=== PATIENT | male | born 1985 | race Caucasian/White ===

== ENCOUNTER 2020-02-02 12:46 | Emergency (ER) | payer SELFPAY ==
[2020-02-02 12:52] VITALS: BP 122/71; PULSE 91; RESP 16; TEMP 37; O2SAT 98; BMI 19.7
[2020-02-02 13:24] LABS: RBC Urine None Seen (0-5/HPF)
[2020-02-02 13:28] LABS: Amorphous Sediment Urine 1+; Bacteria Urine Occasional (0-1); Culture Indicated Urine Specimen Cultured; Squamous Epithelial Cell Urine 0-1 /HPF (0-5/HPF); WBC Urine 1-5/HPF (0-5/HPF)
--- NOTE | 2020-02-02 14:40 | ED_ITS ---
HPI - Male Genitourinary General Chief complaint: Urogenital-Male Stated complaint: left sided lbpain/testicular pain x1 week Time Seen by Provider: 02/02/20 14:40 Source: patient Mode of arrival: Ambulatory Limitations: no limitations History of Present Illness HPI Narrative: 35-year-old gentleman presents with 3-4 days of increasing left flank left groin left testicular pain. He notes no fevers. He has had a new sexual partner recently and does note some minor urethral discharge 1st thing in the morning. Describes no fevers but the pain achiness is progressing to the point where he is not able to ignore it any more. 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 As the pain began radiating down more into his scrotum he felt that further evaluation was appropriate. Related Data Previous Rx's Medication Instructions Recorded doxycycline hyclate 100 mg PO BID #20 cap 02/02/20 Allergies Allergy/AdvReac Type Severity Reaction Status Date / Time cefaclor [From [facility]] Allergy Anaphylaxis Verified 02/02/20 12:57 Review of Systems Review of Systems Narrative: Pertinent positive and negative findings as per HPI Remainder of review of systems is otherwise unremarkable for Constitutional: Fevers, chills, weakness ENT: No sore throat, neck pain, ear pain CV: Chest pain, palpitations, dyspnea on exertion Respiratory: Cough, wheeze, dyspnea MS: Muscle weakness, numbness, joint swelling or warmth Skin: Rashes, nonhealing lesions Neuro: Syncope, dizziness, tingling Patient History Medical History Epididymitis (Acute) Social History Smoking Status: Current every day smoker Smoking Status: Current every day smoker tobacco type: cigarettes alcohol intake frequency: holidays/special occasions only Substance Use Type: marijuana Exam Narrative Exam Narrative: General: Healthy appearing, in no acute distress. Able to give a complete and coherent history. Well-nourished well-developed HEENT: Moist mucous membranes, normal sclera with reactive pupils, Respiratory: Lungs are clear to auscultation, no wheezing no rales no rhonchi. Full and symmetrical air movement Cardiac: Regular rate and rhythm no murmurs no bruits Abdomen: Soft nontender good bowel tones,no rebound or guarding, mild left- sided flank pain, Skin: Warm and dry, no rashes Neurologic: Grossly neurologically intact with no obvious asymmetries or abnormalities Extremities: No trauma, well perfused Psych: Cooperative, appropriate insight and affect Genitals: Normal circumcised male mild tenderness along the epididymis left testicle without significant testicular enlargement. Minor inguinal adenopathy left side. No lesions or discharge noted from penis Initial Vital Signs Initial Vital Signs: Vital Signs Temperature 98.6 F 02/02/20 12:52 Pulse Rate 91 H 02/02/20 12:52 Respiratory Rate 16 02/02/20 12:52 Blood Pressure 122/71 02/02/20 12:52 Pulse Oximetry 98 02/02/20 12:52 Course Orders Ordered: ED Orders 02/02/20 13:10 Urine Culture Stat Urine Microscopic Stat 02/02/20 14:49 US scrotum Stat 02/02/20 17:35 Chlamydia Gonorrhea PCR -URINE Stat Discontinued Medications Azithromycin (Zithromax) 1,000 mg PO NOW ONE Stop: 02/02/20 17:28 Doxycycline Hyclate (Vibramycin) 100 mg PO NOW ONE Stop: 02/02/20 17:35 Ondansetron HCl (Zofran Odt) 4 mg SL NOW ONE Stop: 02/02/20 17:28 Vital Signs Vital signs: Vital Signs - 8 hr 02/02/20 12:52 02/02/20 16:51 Temperature 98.6 F Pulse Rate 91 H 76 Respiratory Rate 16 14 Blood Pressure 122/71 130/82 Pulse Oximetry 98 100 MDM - Male Genitourinary Medical Records Attestation: I reviewed the patient's medical records. Lab Data Attestation: I reviewed the patient's lab results. Labs: Lab Results 02/02/20 Range/Units 13:10 Urine RBC None seen (0-5/HPF) Urine WBC 1-5/hpf (0-5/HPF) Ur Squamous Epith Cells 0-1 /hpf (0-5/HPF) Amorphous Sediment 1+ Urine Bacteria Occasional (0-1) (None) Ur Culture Indicated? Specimen cultured Urine Dip Bedside Urine Glucose 100 mg/dl Bedside Urine Bilirubin - Negative Bedside Urine Ketone +/- 5 Urine Specific [place]landon 1.015 Bedside Urine Occult Blood - Negative Bedside Urine pH 7.5 Bedside Urine Protein +/- 15 Bedside Urine Urobilinogen 1+ 2mg Bedside Urine Nitrite - Negative Bedside Urine Leukocytes +/- 15 Esterase Imaging Data scrotum us: Radiologist's Impression: FINDINGS: Right: Testicle is normal in size at 4.1 x 3.2 x 2 x 1 cm, and homogenous in echotexture. Epididymis is normal in overall size. There is a 3 mm right epididymal head cyst seen. No hydrocele or varicoceles. Overlying scrotal skin is normal in thickness. Left: Testicle is normal in size at 3.7 x 2.6 x 2.1 cm, and homogeneous in echotexture. Epididymis is normal in overall size. Within the left epididymal head, there is a hypoechoic area with increased vascularity seen. Elsewhere, to simple cysts are seen within the epididymal head that measure 3 mm and 4 mm, respectively. There is a trace left-sided hydrocele present. No varicoceles. Overlying scrotal skin is normal in thickness. Doppler: Color and pulse Doppler demonstrate normal and symmetric arterial flow in both testicles. IMPRESSION: No significant testicular abnormality is seen. Normal appearing, symmetric vascular flow is confirmed to the testicles. Potential left epididymitis, with a 9 mm vascular focus seen within the left epididymis. There is a trace left-sided hydrocele. Incidental note is made tiny bilateral epididymal head cysts. Dictated by: Alfred Roman M.D. on 02/02/2020 at 15:03 MDM Narrative Medical decision making narrative: 35-year-old gentleman presents with testicular/epididymis pain and possible urethral discharge with new recent sexual partners. He is allergic with an anaphylactic reaction to Ceclor. Urine has been tested via PCR for gonorrhea and chlamydia. Will empirically treat him with azithromycin 1 g here in the emergency department as an alternative to 250 mg of IM ceftriaxone and discharge him home with 10 additional days of doxycycline 100 mg b.i.d. for epididymitis with possible chlamydia complication. Findings are reviewed with him. Questions are answered. He is safe for home discharge Discharge Plan Departure Patient Disposition: Home Clinical Impression: Epididymitis Instructions: Facts About Sexually Transmitted Infections, DI for Epididymitis Activity Restrictions/Additional Instructions: Thank you for coming in in for your patience today. Your ultrasound suggests that you have epididymitis. Using 400 mg of ibuprofen (2 oain-moi-yylfmtm pills) and 1 Tylenol every 6 hours can be very helpful in controlling pain. Epididymitis can be inflammatory but it can also be related to bacterial infections. Gonorrhea and chlamydia can cause epididymitis. I have tested your urine for both of these but will not have results back for a couple of days. In the meantime, I have treated you with 1 g of azithromycin in the emergency department (an alternative to a shot of ceftriaxone as you are allergic to Ceclor) and given you 10 days of doxycycline, to be taken twice a day. Please make sure you complete the entire prescription It would be appropriate to notify your partners of your possible infection and suggests that they be tested and treated as appropriate. If you feel that you are getting worse, please return to the emergency department I hope you feel better Prescriptions: New doxycycline hyclate 100 mg capsule 100 mg PO BID Qty: 20 RF: 0
--- NOTE | 2020-02-02 14:49 | DI.US.S_ITS ---
PROCEDURE: US SCROTUM INDICATIONS: LEFT TESTICULAR PAIN TECHNIQUE: Real-time scanning was performed of the scrotum and testicles, with image documentation. Color and pulse Doppler interrogation was performed of both testicles. COMPARISON: None. FINDINGS: Right: Testicle is normal in size at 4.1 x 3.2 x 2 x 1 cm, and homogenous in echotexture. Epididymis is normal in overall size. There is a 3 mm right epididymal head cyst seen. No hydrocele or varicoceles. Overlying scrotal skin is normal in thickness. Left: Testicle is normal in size at 3.7 x 2.6 x 2.1 cm, and homogeneous in echotexture. Epididymis is normal in overall size. Within the left epididymal head, there is a hypoechoic area with increased vascularity seen. Elsewhere, to simple cysts are seen within the epididymal head that measure 3 mm and 4 mm, respectively. There is a trace left-sided hydrocele present. No varicoceles. Overlying scrotal skin is normal in thickness. Doppler: Color and pulse Doppler demonstrate normal and symmetric arterial flow in both testicles. IMPRESSION: No significant testicular abnormality is seen. Normal appearing, symmetric vascular flow is confirmed to the testicles. Potential left epididymitis, with a 9 mm vascular focus seen within the left epididymis. There is a trace left-sided hydrocele. Incidental note is made tiny bilateral epididymal head cysts. Dictated by: Alfred Roman M.D. on 02/02/2020 at 15:03 Approved by: Alfred Roman M.D. on 02/02/2020 at 15:06
[2020-02-02 16:51] VITALS: BP 130/82; PULSE 76; RESP 14; O2SAT 100
[2020-02-02] MEDS: ONDANSETRON 4 MG ODT SL (17:50)
[2020-02-02] MEDS: AZITHROMYCIN 250 MG TABLET 1000 MG PO (17:50)
[2020-02-02] MEDS: DOXYCYCLINE HYCLATE 100 MG TABLET PO (17:51)
[2020-02-02 18:02] VITALS: BP 134/64; PULSE 74; RESP 16; O2SAT 100
[2020-02-02 20:02] LABS: Urine N gonorrhoeae NOT DETECTED
[2020-02-02 20:03] LABS: Urine Chlamydia NOT DETECTED
== END 2020-02-02 18:15 | disposition home or self-care (01) ==
PROVIDERS: Emergency Provider Emergency Medicine
DX: N45.1 Epididymitis (principal); Z11.3 Encounter for screening for infections with a predominantly sexual mode of transmission
CPT/HCPCS: 76870; 81003; 81015; 87086; 87491; 87591; 99283; 99284

== ENCOUNTER 2021-01-25 18:10 | Emergency (ER) | payer OTHER, SELFPAY ==
--- NOTE | 2021-01-25 | DI.RAD.S_ITS ---
PROCEDURE: XR CHEST 2V INDICATIONS: COUGH TECHNIQUE: 2 views of the chest were acquired. COMPARISON: None. FINDINGS: Surgical changes and devices: None. Lungs and pleura: Lungs are clear. No pleural effusions or pneumothorax. Incidental note of a azygos lobe is noted. Mediastinum: Mediastinal contours are normal. Heart size is normal. Bones and chest wall: No suspicious bony abnormalities. Soft tissues appear unremarkable. IMPRESSION: No acute cardiopulmonary abnormality. Dictated by: Christian Alfaro M.D. on 01/25/2021 at 20:21 Approved by: Christian Alfaro M.D. on 01/25/2021 at 20:22
[2021-01-25 18:31] VITALS: BP 122/71; PULSE 73; RESP 17; TEMP 37.2; O2SAT 99; BMI 21.2
[2021-01-25 18:47] LABS: COVID19 -Nasal RAPID Negative (Negative)
--- NOTE | 2021-01-25 20:33 | ED.NAVMDI ---
HPI - Nausea/Vomiting/Diarrhea General Chief complaint: Upper Respiratory Symptoms Stated complaint: Headache,Pinch Behind Ear, N/V/D, Abd Pain Time Seen by Provider: 01/25/21 20:27 Source: patient Mode of arrival: Ambulatory History of Present Illness HPI Narrative: Patient awoke this morning with abdominal discomfort with watery diarrhea through the day. Also had few episodes of vomiting. Nonbloody. His had a dry cough going on as well. He started stop smoking. Has had body aches and chills. Unknown any contacts with COVID. He is concerned he may have COVID. Able to drink fluids and keep it down. No dyspnea. Related Data Previous Rx's Medication Instructions Recorded ibuprofen 600 mg tablet 600 mg PO Q6H PRN #24 tab 01/25/21 ondansetron 4 mg disintegrating 4 mg PO Q8H PRN #10 tab 01/25/21 tablet Allergies Allergy/AdvReac Type Severity Reaction Status Date / Time cefaclor [From [facility]] Allergy Anaphylaxis Verified 01/25/21 18:33 Review of Systems Review of Systems Narrative: GENERAL: Complains chills, fatigue, malaise, fever, denies sweats. HEENT: Denies sinus pain, ear pain, sore throat RESPIRATORY: Denies dyspnea, complaint cough CARDIOVASCULAR: Denies chest pain, palpitations GASTROINTESTINAL: Complains of watery diarrhea and nausea, vomiting, denied abdominal pain : Denies dysuria, frequency, hematuria MUSCULOSKELETAL: Complainsmuscle or bony pain SKIN: Denies rash, skin lesions NEUROLOGIC: Denies weakness, numbness ROS Unobtainable: All systems reviewed & are unremarkable except as noted in HPI and below Patient History Medical History Epididymitis Social History Smoking Status: Current every day smoker Smoking Status: Current every day smoker tobacco type: cigarettes alcohol intake frequency: holidays/special occasions only Substance Use Type: marijuana Exam Narrative Exam Narrative: GENERAL: in no distress, not toxic not dyspneic HEAD: Normocephalic. EYES: Pupils equal round No scleral icterus. No injection no discharge ENT: Mucous membranes moist. NECK: Trachea midline. CARDIOVASCULAR: Regular rate and rhythm without murmurs RESPIRATORY: Clear to auscultation. Breath sounds equal bilaterally. No wheezes, rales, or rhonchi. GASTROINTESTINAL: Abdomen soft, non-tender, no peritoneal signs, abdomen flat, bowel sounds present EXTREMITIES: No gross deformities. BACK: No flank tenderness. NEURO: AOx4. SKIN: Warm and dry PSYCH: Not anxious, is cooperative Initial Vital Signs Initial Vital Signs: Vital Signs Temperature 98.9 F 01/25/21 18:31 Pulse Rate 73 01/25/21 18:31 Respiratory Rate 17 01/25/21 18:31 Blood Pressure 122/71 01/25/21 18:31 Pulse Oximetry 99 01/25/21 18:31 Course Course Course Narrative: No new issues during course of stay. Patient started feeling better while here. Orders Ordered: Discontinued Medications Ibuprofen (Ibuprofen 400 Mg Tablet) 400 mg PO NOW ONE Stop: 01/25/21 20:34 Last Admin: 01/25/21 20:47 Dose: 400 mg Documented by: SEBAS Ondansetron HCl (Ondansetron 4 Mg Odt) 4 mg SL NOW ONE Stop: 01/25/21 20:34 Last Admin: 01/25/21 20:47 Dose: 4 mg Documented by: SEBAS Reevaluation(s) Reevaluation #1: Reviewed results with patient. Patient does not want any IV or blood work. Time: 20:39 Vital Signs Vital signs: Vital Signs - 8 hr 01/25/21 18:31 Temperature 98.9 F Pulse Rate 73 Respiratory Rate 17 Blood Pressure 122/71 Pulse Oximetry 99 MDM - Nausea/Vomiting/Diarrhea Differential Diagnosis Differential diagnosis: Likely gastroenteritis, dehydration and other (COVID/viral illness) Lab Data Labs: Lab Results 01/25/21 Range/Units 18:30 SARS-CoV-2 (PCR) Negative (Negative) Imaging Data Chest x-ray: Radiologist's Impression: [address] [address] XRay Report Signed Patient: Armani Lee MR#: [id number] : 1985 Acct:[id number] Age/Sex: 36 / M Date of Service: 01/25/21 Loc: ED Accession Number: [id number] ?? Procedure: XR chest 2V Ordering Provider: *Temp,ED*? PROCEDURE:? XR CHEST 2V ? INDICATIONS:? COUGH ? TECHNIQUE:? 2 views of the chest were acquired.? ? COMPARISON:? None. ? FINDINGS:? ? Surgical changes and devices:? None.? ? Lungs and pleura:? Lungs are clear.? No pleural effusions or pneumothorax.? Incidental note of a azygos lobe is noted. ? Mediastinum:? Mediastinal contours are normal.? Heart size is normal.? ? Bones and chest wall:? No suspicious bony abnormalities.? Soft tissues appear unremarkable.? ? IMPRESSION:? No acute cardiopulmonary abnormality. ? ? Dictated by: Christian Alfaro M.D. on 01/25/2021 at 20:21 ? ? Approved by: Christian Alfaro M.D. on 01/25/2021 at 20:22 ? MDM Narrative Medical decision making narrative: Appropriate and for discharge home. Vital signs exam and imaging and labs reassuring. Return precautions reviewed patient. He needs a work note to indicate he has not COVID positive. Discharge Plan Departure Patient Disposition: Home Clinical Impression: Viral infection Instructions: DI for Viral Gastroenteritis -- Adult Activity Restrictions/Additional Instructions: You had tested negative for COVID infection. Likely other viral illness causing your symptoms. Call provided referral line detained family doctor tomorrow for recheck next week. Keep well hydrated. Return if worsening questions or concerns. Prescriptions: New ibuprofen 600 mg tablet 600 mg PO Q6H PRN (Reason: fever or pain) Qty: 24 RF: 0 ondansetron 4 mg tablet,disintegrating 4 mg PO Q8H PRN (Reason: nausea and vomiting) Qty: 10 RF: 0 Referrals: [facility] [Outside] Stand Alone Forms: Work Release Note
[2021-01-25] MEDS: ONDANSETRON 4 MG ODT SL (20:47)
[2021-01-25] MEDS: IBUPROFEN 400 MG TABLET PO (20:47)
== END 2021-01-25 20:54 | disposition home or self-care (01) ==
PROVIDERS: Emergency Medicine; Emergency Provider Emergency Medicine
DX: B34.9 Viral infection, unspecified (principal); R19.7 Diarrhea, unspecified; R05 Cough; Z20.822 Contact with and (suspected) exposure to COVID-19
CPT/HCPCS: 71046; 87635; 99283; C9803

== ENCOUNTER 2023-05-08 14:22 | Emergency (ER) | payer SELFPAY ==
[2023-05-08 14:25] VITALS: BP 148/64; PULSE 91; RESP 14; TEMP 36.7; O2SAT 100; BMI 20.9
--- NOTE | 2023-05-08 15:13 | CM.SWNOTE ---
ED FACTORY MACHINE COMPUTER OPERATOR Note FACTORY MACHINE COMPUTER OPERATOR receives consult from machine shop repair technician due to patient's concern for food insecurity. FACTORY MACHINE COMPUTER OPERATOR enters room to meet with patient, patient endorses that his food stamps ran out but he contacted [facility] and signed up for food stamps. Patient and family deny any needs or assistance from FACTORY MACHINE COMPUTER OPERATOR. Patient endorses that he knows of food [place] he can go to as well. Plan: patient to d/c to home upon medical clearance after ED provider evaluation. Ena Byrd, MASTER BARBER
--- NOTE | 2023-05-08 15:29 | DI.RAD.S_ITS ---
PROCEDURE: XR LUMBAR SPINE 2-3V INDICATIONS: low back pain with tenderness over low lumbar, no trauma TECHNIQUE: 3 views of the lumbar spine were acquired. COMPARISON: None. FINDINGS: Bones: 5 [id number] vertebrae are present. There is normal bony alignment. No vertebral body compression fractures. No suspicious bony lesions. Soft tissues: Overlying bowel gas pattern is normal. No suspicious soft tissue calcifications. IMPRESSION: No acute bony abnormality. Dictated by: Christian Alfaro M.D. on 05/08/2023 at 16:39 Approved by: Christian Alfaro M.D. on 05/08/2023 at 16:40
--- NOTE | 2023-05-08 15:44 | ED.BACK ---
HPI - Back Pain/Injury <Windy Rojas PA-C - Last Filed: 05/08/23 17:48> General Chief Complaint: Back Pain/Injury Stated Complaint: lower back pain Time Seen by Provider: 05/08/23 14:41 Source: patient History of Present Illness HPI Narrative: Patient is a 38-year-old male who presents with low back pain. 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 A couple days ago his low back was bothering him, he cleaned out the dog run and the next morning was having more significant pain. Since then, he has started having shooting pain in his right leg. He denies any loss of bowel or bladder control, saddle anesthesia or inability to walk. He took ibuprofen x1. He has never had surgery in his back. Related Data Previous Rx's Medication Instructions Recorded ibuprofen 600 mg tablet 600 mg PO Q6H PRN fever or pain 01/25/21 #24 tabs ondansetron 4 mg disintegrating 4 mg PO Q8H PRN nausea and 01/25/21 tablet vomiting #10 tabs ibuprofen 600 mg tablet 600 mg PO QID #60 tabs 05/08/23 prednisone 20 mg tablet 40 mg (2 x 20 mg) PO DAILY #6 tabs 05/08/23 Allergies Allergy/AdvReac Type Severity Reaction Status Date / Time cefaclor [From [facility]] Allergy Anaphylaxis Verified 01/25/21 18:33 Review of Systems <Windy Rojas PA-C - Last Filed: 05/08/23 17:48> Review of Systems ROS Unobtainable: All systems reviewed & are unremarkable except as noted in HPI and below Patient History <Windy Rojas PA-C - Last Filed: 05/08/23 17:48> Medical History (Updated 05/08/23 @ 16:42 by Windy Rojas PA-C) Epididymitis Social History Smoking Status: Current every day smoker Smoking Status: Current every day smoker tobacco type: cigarettes alcohol intake frequency: holidays/special occasions only Substance Use Type: marijuana Exam <Windy Rojas PA-C - Last Filed: 05/08/23 17:48> Narrative Exam Narrative: GENERAL: 38 year old patient appears stated age. Well-developed patient, in no distress. NEURO: AOx3. HEAD: Atraumatic. Normocephalic. EYES: Pupils equal round and reactive. Extraocular motions intact. No scleral icterus. No injection or drainage. ENT: Nose without bleeding or purulent drainage. Airway patent. RESPIRATORY: No distress. EXTREMITIES: No edema or joint tenderness. SPINE: Midline tenderness over the low lumbar spine, tenderness over right SI joint. Patient is able to ambulate with discomfort. Strength is 5/5 in bilateral lower extremities. Patient has decreased range of motion in his back due to pain. SKIN: No rash or erythema of visible areas Initial Vital Signs Initial Vital Signs: Vital Signs Temperature 98.1 F 05/08/23 14:25 Pulse Rate 91 H 05/08/23 14:25 Respiratory Rate 14 05/08/23 14:25 Blood Pressure 148/64 H 05/08/23 14:25 Pulse Oximetry 100 05/08/23 14:25 Oxygen Delivery Method Room Air 05/08/23 14:25 <Christos Osorio DO - Last Filed: 05/08/23 17:54> Initial Vital Signs Initial Vital Signs: Vital Signs Temperature 98.1 F 05/08/23 14:25 Pulse Rate 91 H 05/08/23 14:25 Respiratory Rate 14 05/08/23 14:25 Blood Pressure 148/64 H 05/08/23 14:25 Pulse Oximetry 100 05/08/23 14:25 Oxygen Delivery Method Room Air 05/08/23 14:25 Course <Windy Rojas PA-C - Last Filed: 05/08/23 17:48> Orders Ordered: ED Orders 05/08/23 14:31 Consult to [facility] - [facility] Stat 05/08/23 15:29 XR lumbar spine 2-3V Stat Vital Signs Vital signs: Vital Signs - 8 hr 05/08/23 14:25 05/08/23 16:53 Temperature 98.1 F Pulse Rate 91 H 79 Respiratory Rate 14 16 Blood Pressure 148/64 H 119/78 Pulse Oximetry 100 99 Oxygen Delivery Method Room Air Room Air <DO Angel Antonio Last Filed: 05/08/23 17:54> Orders Ordered: ED Orders 05/08/23 14:31 Consult to [employer] - [employer] Stat 12/21/23 15:29 XR lumbar spine 2-3V Stat Vital Signs Vital signs: Vital Signs - 8 hr 05/08/23 14:25 05/08/23 16:53 Temperature 98.1 F Pulse Rate 91 H 79 Respiratory Rate 14 16 Blood Pressure 148/64 H 119/78 Pulse Oximetry 100 99 Oxygen Delivery Method Room Air Room Air MDM - Back Pain/Injury <Windy Rojas PA-C - Last Filed: 05/08/23 17:48> Imaging Data lumbar xray: Radiologist's Impression: PROCEDURE: XR LUMBAR SPINE 2-3V INDICATIONS: low back pain with tenderness over low lumbar, no trauma TECHNIQUE: 3 views of the lumbar spine were acquired. COMPARISON: None. FINDINGS: Bones: 5 [id number] vertebrae are present. There is normal bony alignment. No vertebral body compression fractures. No suspicious bony lesions. Soft tissues: Overlying bowel gas pattern is normal. No suspicious soft tissue calcifications. IMPRESSION: No acute bony abnormality. Dictated by: Christian Alfaro M.D. on 05/08/2023 at 16:39 Approved by: Christian Alfaro M.D. on 05/08/2023 at 16:40 [facility] Narrative Medical decision making narrative: Multiple etiologies of back pain considered including; Epidural abscess, cauda equina, mass occupying lesion, musculoskeletal strain And history and exam most consistent with lumbar strain. X-rays of lumbar spine unremarkable. Discussed pain management options with the patient. He does not like to take medications that alter his thinking. I strongly recommend him to take 600 mg of ibuprofen q.6 hours. Offered muscle relaxers which he does not want. He is amenable to a short dose of steroids to decrease inflammation. These have been sent to his pharmacy. Also provided education and handouts regarding ice, stretching, gentle activity, expected length of time to recovery a 4-6 weeks. Given note for several days off work. Return precautions advised. Patient's symptoms improved over duration of stay with above-stated therapies. Findings and discharge diagnosis discussed with patient/family followed by verbalization of understanding Return precautions discussed with patient/family whom verbalize understanding of diagnosis and plan Discharge Plan Departure Patient Disposition: Home Clinical Impression: Lumbar strain Qualifiers: Encounter type: initial encounter Qualified Code(s): S39.012A - Strain of muscle, fascia and tendon of lower back, initial encounter Sciatica Qualifiers: Laterality: right Qualified Code(s): M54.31 - Sciatica, right side Instructions: DI for Back Pain With Sciatica Activity Restrictions/Additional Instructions: *You have been diagnosed with low back strain with sciatica. I have provided you with some educational materials. It is very important to stay active with walking, gentle stretching. I would advise taking ibuprofen around the clock for its anti-inflammatory and pain relieving effects as well as a short course of steroids which can help decrease inflammation and treat the sciatica. I will include a note for work so that you can take several days off. *What to do: *Please continue to take your regular medications as directed. [x] New medication prescriptions sent to your pharmacy: [facility] [ ] New medication written as a paper prescription [ ] No new medications given *Please follow up with your primary care provider in 2-3 days, call for an appointment. Let them know you were seen in the Emergency Department and that we ask that you be seen in follow up. We will electronically transmit a record of today's note if your PCP is in our system *If you do not have a primary care provider please contact the [facility] Resource line at [phone]. They will ask some questions about your medical history and help get you set up with a doctor in the community. *Return to Emergency Department if you should have any new, worsening or concerning symptoms, such as [fever greater than 101 F, shaking chills, worsening pain, persistent vomiting or other concerning symptoms]. Prescriptions: New ibuprofen 600 mg tablet 600 mg PO QID Qty: 60 0RF prednisone 20 mg tablet 40 mg PO DAILY Qty: 6 0RF No Action ibuprofen 600 mg tablet 600 mg PO Q6H PRN (Reason: fever or pain) Qty: 24 0RF ondansetron 4 mg tablet,disintegrating 4 mg PO Q8H PRN (Reason: nausea and vomiting) Qty: 10 0RF Referrals: Miscellaneous,Doctor, MD [Primary Care Provider] - Stand Alone Forms: Patient Portal/API, Work Release Note ED Sign-out <Christos Osorio, DO - Last Filed: 05/08/23 17:54> [facility] Dr Osorio Co-Sign Statement: I was available for consultation during this patient's emergency department visit. This chart is signed by myself for administrative purposes only. I did not have direct contact with this patient during this visit. They were seen independently by the APC.
[2023-05-08 16:53] VITALS: BP 119/78; PULSE 79; RESP 16; O2SAT 99
== END 2023-05-08 16:54 | disposition home or self-care (01) ==
PROVIDERS: Emergency Provider Physician Assistant
DX: S39.012A Strain of muscle, fascia and tendon of lower back, initial encounter (principal); X50.9XXA Other and unspecified overexertion or strenuous movements or postures, initial encounter
CPT/HCPCS: 72100; 99283